=== PATIENT | male | born 1985 | race Two or more races ===

== ENCOUNTER 2023-11-24 17:32 | Emergency (ER) | payer MEDICAID ==
[~2023-11-24] VITALS: Ht 167.6 cm; Wt 67.1 kg
[2023-11-24] MEDS ORDERED: DOXY100C2 PO (18:58)
[2023-11-24] MEDS ORDERED: DOXYCYCLINE HYCLATE (100 MG) 100 MG TABLET ONE (19:12)
[2023-11-24] MEDS ORDERED: CEFTRIAXONE 500 MG VIAL ONE (19:12)
[2023-11-24] MEDS: CEFTRIAXONE 500 MG VIAL IM ONE (19:18)
[2023-11-24] MEDS: DOXYCYCLINE HYCLATE (100 MG) 100 MG TABLET PO ONE (19:18)
[2023-11-24 19:32] VITALS: BP 116/76; TEMP 98; O2SAT 100
[2023-11-24 19:40] LABS: APPEARANCE,URINE Clear (CLEAR); BILIRUBIN,URINE Negative (NEGATIVE); BLOOD, URINE Negative Ery/uL (NEGATIVE); COLOR,URINE YELLOW (YELLOW); KETONES,URINE Trace mg/dL (NEGATIVE); LEUKOCYTE ESTERASE ,URINE Negative (NEGATIVE); NITRITE, URINE Negative (NEGATIVE); PH,URINE 5.5 (5.0-8.0); PROTEIN,URINE Negative (NEGATIVE); UGLUCOSE Negative (NEGATIVE); UROBILINOGEN,URINE 0.2 EU/dL (0.2)
[2023-11-24 19:58] LABS: RBC,URINE 0-2 /HPF (0-2); WBC,URINE NONE SEEN /HPF (0-3)
[2023-11-24 19:59] LABS: ADD URINE CULTURE NO; BACTERIA,URINE Rare /HPF (None Seen); SQUAMOUS EPITHELIAL CELL,UR Rare /HPF (None Seen)
[2023-11-25 17:26] LABS: HIV-1 p24 ANTIGEN NON REACTIVE (NONREACTIVE); HIV-1/2 ANTIBODY NON REACTIVE (NONREACTIVE)
[2023-11-26 07:09] LABS: RAPID PLASMA REAGIN QUAL. Non Reactive (Non Reactive)
[2023-11-26 13:10] LABS: CHLAMYDIA TRACHOMATIS NAA Negative (Negative); NEISSERIA GONORRHOEAE NAA Negative (Negative)
== END 2023-11-24 19:32 | disposition home or self-care (01) ==
LOC: ER 17:43
DX: R10.32 Left lower quadrant pain (principal); R10.31 Right lower quadrant pain; R30.0 Dysuria; Z11.3 Encounter for screening for infections with a predominantly sexual mode of transmission; Z60.2 Problems related to living alone
CPT/HCPCS: 99283; 86592; 86593; 96372; 81001; 36415; 87806; 87491; 87591; J0696